=== PATIENT | female | born 1960 | race Caucasian/White ===

== ENCOUNTER 2018-12-17 04:06 | Outpatient (CLI) | payer BC ==
[~2018-12-17 04:06] MED LIST: NO HOME MEDS
== END 2018-12-17 23:59 | disposition home or self-care (01) ==
LOC: DIABETIC 04:06
PROVIDERS: ATTEND Nurse Practitioner Family
DX: E11.9 Type 2 diabetes mellitus without complications (principal); H93.11 Tinnitus, right ear; K21.9 Gastro-esophageal reflux disease without esophagitis; R07.89 Other chest pain; R06.00 Dyspnea, unspecified; R61 Generalized hyperhidrosis; N39.0 Urinary tract infection, site not specified; M67.823 Other specified disorders of tendon, right elbow; L84 Corns and callosities; Z79.84 Long term (current) use of oral hypoglycemic drugs
CPT/HCPCS: G0108